=== PATIENT | female | born 1980 ===

== ENCOUNTER 2017-10-24 14:12 | Emergency (ER) | payer SELFPAY ==
[2017-10-24 14:18] VITALS: BMI 31.1
--- NOTE | 2017-10-24 15:02 | ED PDOC ---
Arrival/HPI - General Chief Complaint: Chest Pain Time Seen by Provider: 10/24/17 14:13 Historian: Patient - History of Present Illness Narrative History of Present Illness (Text): 10/24/17 14:46 A 37 year old female, whose past medical history includes asthma (takes Albuterol, never has been intubated in the past) and , NKDA, presents to the emergency department complaining of chest pain and left arm/leg odd sensation for several weeks. States chest pain episodes last for several minutes and later is gone. Notes symptoms occur randomly, and also experiences shortness of breath, pressure-like headache (forehead and sides of head, sometimes face and radiates to neck; she has taken Advil and Motrin but has had no relief of symptom), and palpitations. Patient explains she "does not feel herself" and "her left arm/leg feel different from her right arm/leg." States she feels as if right-side extremities are about to become numb but do not. Patient reports she feels as though she may be experiencing anxiety attacks, however is uncertain. 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 She mentions seeing an ER physician at the [facility], and only had vitals taken, however had know tests/treatments performed for her whatsoever. She states also speaking with a family friend whom is a physician, who told her she may possibly have tendonitis to her right- extremities, and was recommended to try cold compresses. However patient has had no relief of symptoms. Patient denies any nausea, vomiting, any urinary symptoms, or any other complaints at this time. Denies any history of smoking, admits to occasional consumption of alcohol (1-2 times per month). LMP ended . JACKSON is not worst of life or sudden in onset. PMD: Dr. Ghada Pate 10/24/17 16:22 Time/Duration: > month (several weeks) Symptom Onset: Gradual Symptom Course: Unchanged, Intermittent Past Medical History - Provider Review Nursing Documentation Reviewed: Yes - Past History Past History: No Previous - Infectious Disease Hx of Infectious Diseases: None - Tetanus Immunization Tetanus Immunization: Unknown - Past Medical History Past Medical History: No Previous - Cardiac Hx Cardiac Disorders: No - Pulmonary Hx Asthma: Yes - Psychiatric Hx Substance Use: No - Surgical History Hx Section: Yes - Anesthesia Hx Anesthesia: Yes Hx Anesthesia Reactions: No Hx Malignant Hyperthermia: No - Suicidal Assessment Feels Threatened In Home Enviroment: No Family/Social History - Physician Review Nursing Documentation Reviewed: Yes Family/Social History: Diabetes, Hypertension, CAD/VT Smoking Status: Never Smoked Hx Alcohol Use: No Hx Substance Use: No Allergies/Home Meds Allergies/Adverse Reactions: Allergies No Known Allergies Allergy (Verified 10/09/14 00:06) Home Medications: Home Meds Medication Instructions Recorded Confirmed Albuterol HFA [Ventolin HFA 90 2 puff IH PRN PRN 10/24/17 10/24/17 mcg/actuation (8 g)] Review of Systems - Review of Systems Constitutional: Normal Eyes: Normal ENT: Normal Respiratory: SOB Cardiovascular: Chest Pain, Palpitations Gastrointestinal: absent: Nausea, Vomiting Genitourinary Female: absent: Dysuria, Frequency, Hematuria, Urine Output Changes Musculoskeletal: Normal Skin: Normal Neurological: Headache (forehead and sides of head, sometimes face and radiates to neck), Other (right arm/leg abnormal sensation, according to patient "her left arm/leg feel different from her right arm/leg.") Endocrine: Normal Hemo/Lymphatic: Normal Psychiatric: Normal Physical Exam Vital Signs Reviewed: Yes Vital Signs Temp 10/24/17 14:13 98.7 F Temperature: Afebrile Pain Distress: None Mental Status: Positive for: Alert and Oriented X 3, other (patient appears anxious.) - Systems Exam Head: Present: Atraumatic, Normocephalic Pupils: Present: PERRL Extroacular Muscles: Present: EOMI Conjunctiva: Present: Normal Mouth: Present: Moist Mucous Membranes Neck: Present: Normal Range of Motion Respiratory/Chest: Present: Clear to Auscultation, Good Air Exchange. No: Respiratory Distress, Accessory Muscle Use Cardiovascular: Present: Regular Rate and Rhythm, Normal S1, S2. No: Murmurs Abdomen: No: Tenderness, Distention, Peritoneal Signs Back: Present: Normal Inspection Upper Extremity: Present: Normal Inspection. No: Cyanosis, Edema Lower Extremity: Present: Normal Inspection. No: Edema Neurological: Present: GCS=15, CN II-XII Intact, Speech Normal Skin: Present: Warm, Dry, Normal Color. No: Rashes Psychiatric: Present: Alert, Oriented x 3, Normal Insight, Normal Concentration , Anxious Medical Decision Making ED Course and Treatment: 10/24/17 14:50 Impression: 37 year old female with chest pain, palpitations, headache, and left arm/leg odd sensation. Physical exam shows patient appears anxious; otherwise no acute findings on examination. Unlikely cardiac/neurological issues. Low risk heart score. Low pretest wells. PERCed out. No meningeal signs. Plan: -- EKG -- Head CT -- Chest X-ray -- POC Urine test -- Labs -- Reassess and disposition Progress Notes: EKG: Ordered, reviewed, and independently interpreted the EKG. Rate : 82 BPM Rhythm : NSR Interpretation : No STEMI, No ST-segment elevations or depressions, no T-wave inversions, normal intervals. Comparison : No previous EKG for comparison. 10/24/17 16:23 CT negative XR negative Labs unremarkable clear for d/c home. U/l stroke given intermittent nature of symptoms ?MS- will give neuro follow up U/l sub arach given weeks of JACKSON U/l ACS given low risk Heart score <3 but will give cards to f/u 10/24/17 16:35 - Lab Interpretations Lab Results: 10/24/17 14:38 10/24/17 14:38 Lab Results 10/24/17 14:38: TSH 3rd Generation 0.88 10/24/17 14:38: Sodium 141, Potassium 3.7, Chloride 105, Carbon Dioxide 25, Anion Gap 15, BUN 8, Creatinine 0.8, Est GFR ( Amer) > 60, Est GFR (Non- Af Amer) > 60, Random Glucose 94, Calcium 9.6, Magnesium 2.1, Total Bilirubin 1.0, AST 15, ALT 24, Alkaline Phosphatase 75, Troponin I < 0.01, Total Protein 7.4, Albumin 4.3, Globulin 3.2, Albumin/Globulin Ratio 1.3 10/24/17 14:38: WBC 7.8, RBC 4.81, Hgb 14.1, Hct 40.4, MCV 84.0, MCH 29.3, MCHC 34.9, RDW 12.3, Plt Count 256, MPV 11.0, Gran % 65.6, Lymph % (Auto) 27.1, [place] % (Auto) 6.7 H, Eos % (Auto) 0.5 L, Baso % (Auto) 0.1, Gran # 5.12, Lymph # ( Auto) 2.1, [place] # (Auto) 0.5, Eos # (Auto) 0.0, Baso # (Auto) 0.01 - RAD Interpretation Radiology Orders: 10/24/17 14:45 HEAD W/O CONTRAST [CT] Stat 10/24/17 14:46 CHEST TWO VIEWS (PA/LAT) [RAD] Stat - Medication Orders Current Medication Orders: Sodium Chloride (Sodium Chloride 0.9%) 500 mls @ 100 mls/hr IV .Q5H CLOVER Discontinued Medications Acetaminophen (Tylenol 325mg Tab) 650 mg PO STAT STA Stop: 10/24/17 15:37 Metoclopramide HCl (Reglan) 10 mg IVP STAT STA Stop: 10/24/17 15:36 - Scribe Statement The provider has reviewed the documentation as recorded by the Zhao Tam Provider Scribe Attestation: All medical record entries made by the Scribe were at my direction and personally dictated by me. I have reviewed the chart and agree that the record accurately reflects my personal performance of the history, physical exam, medical decision making, and the department course for this patient. I have also personally directed, reviewed, and agree with the discharge instructions and disposition. Disposition/Present on Arrival - Present on Arrival Any Indicators Present on Arrival: No History of DVT/PE: No History of Uncontrolled Diabetes: No Urinary Catheter: No History of Decub. Ulcer: No History Surgical Site Infection Following: None - Disposition Have Diagnosis and Disposition been Completed?: Yes Diagnosis: Headache, Chest pain Disposition: HOME/ ROUTINE Disposition Time: 16:00 Patient Plan: Discharge Condition: GOOD Discharge Instructions (ExitCare): Chest Pain (ED), Headache, Adult, Migraine Headache (DC) Additional Instructions: PIPO MALDONADO, thank you for letting us take care of you today. Your provider was Elbert Cam and you were treated for CHEST DISCOMFORT. The emergency medical care you received today was directed at your acute symptoms. If you were prescribed any medication, please fill it and take as directed. It may take several days for your symptoms to resolve. Return to the Emergency Department if your symptoms worsen, do not improve, or if you have any other problems. Please contact your doctor or call one of the physicians/clinics you have been referred to that are listed on the Patient Visit Information form that is included in your discharge packet. Bring any paperwork you were given at discharge with you along with any medications you are taking to your follow up visit. Our treatment cannot replace ongoing medical care by a primary care provider outside of the emergency department. Thank you for allowing the [facility] team to be part of your care today. If you had an X-Ray or CT scan: A Radiologist will review the ED reading if any change in treatment is needed we will contact you. If you had a blood, urine, or wound culture: It will take several days for the results, if any change in treatment is needed we will contact you. If you had an STI test: It will take 48 hours for the results. Please call after 1 week if you have not heard back. Referrals: Ghada Pate MD [Primary Care Provider] - Follow up with primary Mario Rausch MD [Staff Provider] - Follow up with primary Dinorah Elizalde MD [Staff Provider] - Follow up with primary Forms: [employer] (Y[place]i)
[2017-10-24 15:04] LABS: ALB/GLOB RATIO 1.3 (1.1-1.8); ALBUMIN 4.3 g/dL (3.0-4.8); ALT/SGPT 24 U/L (7-56); AST/SGOT 15 U/L (14-36); BLOOD UREA NITROGEN 8 mg/dL (7-21); CALCIUM 9.6 mg/dL (8.4-10.5); GFR AFRICAN-AMERICAN > 60; GFR NON-AFRICAN AMERICAN > 60
[2017-10-24 15:13] LABS: BASO # 0.01 K/mm3 (0.0-2.0); BASO % 0.1 % (0.0-3.0); EOS % 0.5 % (1.5-5.0); GRAN # 5.12 (1.4-6.5); GRAN % 65.6 % (50.0-68.0); HEMOGLOBIN 14.1 g/dL (12.0-16.0); LYMPH # 2.1 (1.2-3.4); LYMPH % 27.1 % (22.0-35.0); MEAN CORPUSCULAR HEMOGLOBIN 29.3 pg (25.0-35.0); MEAN CORPUSCULAR HGB CONC 34.9 g/dl (31.0-37.0); MONO # 0.5 (0.1-0.6); MONO % 6.7 % (1.0-6.0); RBC 4.81 10^6/uL (3.5-6.1); RED CELL DISTRIBUTION WIDTH 12.3 % (11.5-14.5); WHITE BLOOD COUNT 7.8 10^3/ul (4.5-11.0)
[2017-10-24 15:16] LABS: TROPONIN I < 0.01 ng/mL
[2017-10-24] MEDS ORDERED: Sodium Chloride 0.9% 500 ML IV SCH (15:45)
--- NOTE | 2017-10-24 16:11 | CT ---
Date of service: 10/24/2017 PROCEDURE: CT HEAD WITHOUT CONTRAST. HISTORY: parathesias COMPARISON: None available. TECHNIQUE: Axial computed tomography images were obtained through the head/brain without intravenous contrast. Radiation dose: Total exam DLP = 856 mGy-cm. This CT exam was performed using one or more of the following dose reduction techniques: Automated exposure control, adjustment of the mA and/or kV according to patient size, and/or use of iterative reconstruction technique. FINDINGS: HEMORRHAGE: No intracranial hemorrhage. BRAIN: No mass effect or edema. No atrophy or chronic microvascular ischemic changes. VENTRICLES: Unremarkable. No hydrocephalus. CALVARIUM: Unremarkable. PARANASAL SINUSES: Unremarkable as visualized. No significant inflammatory changes. MASTOID AIR CELLS: Unremarkable as visualized. No inflammatory changes. OTHER FINDINGS: None. IMPRESSION: Normal CT of the Head.
--- NOTE | 2017-10-24 16:18 | RAD ---
Date of service: 10/24/2017 HISTORY: chest pain COMPARISON: No prior. TECHNIQUE: Chest PA and lateral FINDINGS: LUNGS: No active pulmonary disease. PLEURA: No significant pleural effusion identified. No pneumothorax apparent. CARDIOVASCULAR: Normal. OSSEOUS STRUCTURES: No significant abnormalities. VISUALIZED UPPER ABDOMEN: Normal. OTHER FINDINGS: None. IMPRESSION: No active disease.
[2017-10-24 17:14] VITALS: BP 105/60; PULSE 66; RESP 18; TEMP 98; O2SAT 97
--- NOTE | 2017-10-24 20:54 | CARD ---
APPROVED REPORT Date of service: 10/24/2017 EKG Measurement Heart [id number] <Conclusion> Normal sinus rhythm Possible Left atrial enlargement Borderline ECG
== END 2017-10-24 17:33 | disposition home or self-care (01) ==
LOC: ED 14:12
DX: R07.9 Chest pain, unspecified (principal); R51 Headache
CPT/HCPCS: 70450; 71046; 80053; 83735; 84443; 84484; 85025; 93005; 96374; 99283; J2765; J7040